=== PATIENT | female | born 1980 | race African-American/Black ===

== ENCOUNTER 2021-04-02 23:16 | Emergency (ER) | payer BC ==
[~2021-04-02] VITALS: Ht 157.5 cm; Wt 81.7 kg
[~2021-04-02 23:16] MED LIST: FIORICET PO
[2021-04-02] MEDS ORDERED: NOHOMEMEDICATIONS (23:20)
[2021-04-02] MEDS ORDERED: XANAX 0.5 MG0.5 M1 PO (23:39)
[2021-04-02 23:40] VITALS: BP 127/92
--- NOTE | 2021-04-03 08:40 | EKG ---
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 : 1980 Requested By: Mehran Yoder Order Number: [id number] MD: Kong Figueroa Measurements Intervals [place] Rate: 87 P: 71 VA: 150 QRS: 67 QRSD: 95 T: 40 QT: 364 QTc: 438 Interpretive Statements Sinus rhythm Probable left atrial enlargement Baseline wander in lead(s) V2 Compared to ECG 03/13/2010 11:55:21 No significant changes Electronically Signed On 04-03-2021 8:40:21 SECURITY SUPPORT ANALYST by Kong Figueroa [email or web address] <ELECTRONICALLY SIGNED> By: Kong Figueroa MD, [facility] 04/03/21 0840 D: 01/2329 29 Kong Figueroa MD, FACC /EPI
== END 2021-04-03 00:45 | disposition home or self-care (01) ==
LOC: ER 23:16
DX: U07.1 COVID-19 (principal); R00.2 Palpitations; G43.909 Migraine, unspecified, not intractable, without status migrainosus